=== PATIENT | female | born 1960 | race American Indian/Alaskan Native ===

== ENCOUNTER 2016-02-24 14:27 | Outpatient (CLI) | payer OTHER ==
--- NOTE | 2016-02-24 16:15 | Mammography Report ---
BILATERAL DIGITAL SCREENING MAMMOGRAM : 02/24/16 14:27:00 CLINICAL: Routine screening. COMPARISON:01/22/15 FINDINGS: The breasts are heterogeneously dense, which may obscure small masses. A left asymmetry on the MLO view requires additional imaging.No architectural distortion or suspicious calcifications.The right breast is negative. IMPRESSION: Left asymmetry requiring further workup. BI-RADS CATEGORY: 0 -- Additional Imaging Evaluation Required RECOMMENDATION: Recall for left mediolateral and spot compression MLO views and left breast ultrasound if needed. ACR BI-RADS MAMMOGRAPHIC CODES: 0 = Needs additional imaging evaluation; 1 = Negative; 2 = Benign; 3 = Probably benign; 4 = Suspicious; 5 = Malignant; 6 = Known biopsy-proven malignancy COMMENT: 1. Dense breast tissue, i.e., adenosis, fibrocystic changes, etc., may obscure an underlying neoplasm. 2. Approximately 10% of cancers are not detected with mammography. 3. A negative mammography report should not delay biopsy if a clinically suspicious mass is present. COMMENT: Patient follow-up letters are generated via our [employer] application.
== END 2016-02-24 14:28 | disposition home or self-care (01) ==
LOC: SPVWC 14:27
PROVIDERS: ATTEND Obstetrics & Gynecology
DX: Z12.31 Encounter for screening mammogram for malignant neoplasm of breast (principal)
CPT/HCPCS: 77067; G0202

== ENCOUNTER 2016-03-03 09:16 | Outpatient (CLI) | payer OTHER ==
--- NOTE | 2016-03-03 10:54 | Mammography Report ---
LEFT DIGITAL DIAGNOSTIC MAMMOGRAM : 03/03/16 09:16:00 CLINICAL: Recalled for asymmetry. COMPARISON:02/24/16 screening FINDINGS: ML, MLO and spot compression MLO views were performed. A less suspicious density persists on MLO and ML views but is unchanged on the spot MLO view. Ultrasound of the upper left breast was performed and demonstrated normal fatty and fibroglandular structures. No mass, cyst or shadowing to correlate with the mammographic density. IMPRESSION: A probably benign mammographic asymmetry identified only on one view of the mammogram with a negative ultrasound. BI-RADS CATEGORY: 3 - - Probably Benign RECOMMENDATION: Six month followup left mammogram and ultrasound if needed. ACR BI-RADS MAMMOGRAPHIC CODES: 0 = Needs additional imaging evaluation; 1 = Negative; 2 = Benign; 3 = Probably benign; 4 = Suspicious; 5 = Malignant; 6 = Known biopsy-proven malignancy COMMENT: 1. Dense breast tissue, i.e., adenosis, fibrocystic changes, etc., may obscure an underlying neoplasm. 2. Approximately 10% of cancers are not detected with mammography. 3. A negative mammography report should not delay biopsy if a clinically suspicious mass is present. COMMENT: Patient follow-up letters are generated via our [employer] application.
== END 2016-03-03 09:17 | disposition home or self-care (01) ==
LOC: SPVWC 09:16
PROVIDERS: ATTEND Obstetrics & Gynecology
DX: R92.8 Other abnormal and inconclusive findings on diagnostic imaging of breast (principal)
CPT/HCPCS: 76642; G0206

== ENCOUNTER 2016-09-01 11:06 | Outpatient (CLI) | payer OTHER ==
--- NOTE | 2016-09-01 13:23 | Mammography Report ---
LEFT DIGITAL DIAGNOSTIC MAMMOGRAM with CAD: 09/01/16 11:06:00 CLINICAL: Six month followup for asymmetry. COMPARISON:03/03/16, 02/24/16 and 01/22/15 FINDINGS: The breast is heterogeneously dense, which may obscure small masses. The previously described asymmetry is less prominent and demonstrates near complete effacement with spot compression. No mass, architectural distortion or suspicious calcifications. IMPRESSION: Negative mammogram. BI-RADS CATEGORY: 1 - - Negative RECOMMENDATION: Return to routine mammographic screening. ACR BI-RADS MAMMOGRAPHIC CODES: 0 = Needs additional imaging evaluation; 1 = Negative; 2 = Benign; 3 = Probably benign; 4 = Suspicious; 5 = Malignant; 6 = Known biopsy-proven malignancy COMMENT: 1. Dense breast tissue, i.e., adenosis, fibrocystic changes, etc., may obscure an underlying neoplasm. 2. Approximately 10% of cancers are not detected with mammography. 3. A negative mammography report should not delay biopsy if a clinically suspicious mass is present. COMMENT: Patient follow-up letters are generated by our [employer] application.
== END 2016-09-01 11:07 | disposition home or self-care (01) ==
LOC: SPVWC 11:06
PROVIDERS: ATTEND Obstetrics & Gynecology
DX: R92.8 Other abnormal and inconclusive findings on diagnostic imaging of breast (principal); I10 Essential (primary) hypertension; Z87.891 Personal history of nicotine dependence
CPT/HCPCS: G0206-LT

== ENCOUNTER 2017-06-29 12:04 | Outpatient (CLI) | payer OTHER ==
[2017-06-29 13:02] LABS: Blood Urea Nitrogen 14 mg/dL (7-17)
--- NOTE | 2017-06-29 16:02 | Cat Scan Report ---
FINAL REPORT EXAM: CT ABDOMEN PELVIS WO/W CON HISTORY: FEMALE PELVIC PAIN TECHNIQUE: Standard unenhanced followed by enhanced CT of the abdomen and pelvis. Coronal and sagittal reconstruction was also performed. Delayed imaging through the kidneys and bladder was also obtained. Contrast: Oral and intravenous contrast given PRIORS: None. FINDINGS: There a percutaneous drain in the right mid abdomen which terminates within the midline pelvis. There is a small amount of low-density free fluid in the dependent pelvis surrounding the end of the tubing. Within the abdomen, the liver, spleen, pancreas, gallbladder, adrenal glands, and kidneys are unremarkable. No evidence for retroperitoneal or pelvic lymphadenopathy is seen. The bowel loops have normal caliber. No soft tissue mass, loculated fluid collection, inflammatory change, or free air is seen within the abdomen or pelvis. The appendix is normal. Within the pelvis, the bladder is unremarkable. The uterus has been surgically removed. No evidence for mass or lymphadenopathy is seen in the pelvis. Images through the upper abdomen include the lung bases which are expanded and clear. Bony structures show bilateral facet joint degenerative changes at L4 through S1. Spinal cord stimulator leads are present within the spinal canal. Subchondral sclerosis and cyst formation is present on the ilial side of both SI joints, likely related to osteoarthritis. IMPRESSION: 1. no acute intra-abdominal process noted. 2. Small amount of low-density free fluid in the dependent pelvis surrounding terminal end of the percutaneous drain.
== END 2017-06-29 12:05 | disposition home or self-care (01) ==
LOC: CT 12:04
PROVIDERS: ATTEND Obstetrics & Gynecology
DX: R10.2 Pelvic and perineal pain (principal); M47.817 Spondylosis without myelopathy or radiculopathy, lumbosacral region; Z90.710 Acquired absence of both cervix and uterus
CPT/HCPCS: 36415; 74178; 82565; 84520; Q9967

== ENCOUNTER 2017-11-02 10:29 | Outpatient (CLI) | payer OTHER ==
--- NOTE | 2017-11-02 11:43 | Ultrasound Report ---
BILATERAL DIGITAL DIAGNOSTIC MAMMOGRAM with CAD and LEFT BREAST ULTRASOUND: 11/02/17 CLINICAL: Left axillary pain. COMPARISON:02/24/16 and left mammograms from 03/03/16 and 09/01/16 FINDINGS: The breasts are heterogeneously dense, which may obscure small masses.A left outer biopsy clip.No mass, architectural distortion or suspicious calcifications. Several bilateral axillary lymph nodes with benign morphology. Ultrasound of the left breast was performed in the left axillary tail and axilla. Small lymph nodes with benign morphology measure 1.3 x 0.4 x 0.5 cm and 0.7 x 0.4 x 0.6 cm. No mass or suspicious lymph node. No fluid collection or cyst. IMPRESSION: Negative mammogram and negativeleft axillary ultrasound. No explanation for left axillary pain. BI-RADS CATEGORY: 1 -- Negative RECOMMENDATION: Clinical followup and routine mammographic screening in one year. COMMENT: Patient follow-up letters are generated by our [employer] application.
== END 2017-11-02 10:30 | disposition home or self-care (01) ==
LOC: SPVWC 10:29
PROVIDERS: ATTEND Obstetrics & Gynecology
DX: R92.8 Other abnormal and inconclusive findings on diagnostic imaging of breast (principal); I10 Essential (primary) hypertension; Z87.891 Personal history of nicotine dependence
CPT/HCPCS: 77066

== ENCOUNTER 2018-10-23 09:40 | Outpatient (CLI) | payer OTHER ==
--- NOTE | 2018-10-23 15:57 | Mammography Report ---
BILATERAL DIGITAL SCREENING MAMMOGRAM WITH CAD INDICATION: Routine screening mammography. TECHNIQUE: Digital bilateral 2D mammography was obtained in the craniocaudal and mediolateral obliq ue projections. This examination was interpreted with the benefit of Computer-Aided Detection analysi s. COMPARISON: 11/02/2017, 02/24/2016 and 01/22/2015 FINDINGS: Breast Density: The breasts are heterogeneously dense, which may obscure small masses. No mass, architectural distortion or suspicious calcifications. Left outer biopsy clip. IMPRESSION:No mammographic evidence of malignancy. BI-RADS Category 2: Benign. No mammographic evidence of malignancy. Recommend routine screening ma mmography in one year. A "normal" or negative report should not discourage follow up or biopsy of a clinically significant f inding. A written summary of these findings will be mailed to the patient. The patient will be entered into a mammography reporting system which will generate a reminder letter for the patient's next appointmen t at the appropriate interval. The [employer] recommends yearly mammograms starting at age 40 and continuing as l melissa as a woman is in good health. Breast MRI is recommended for women with an approximate 20-25% or greater lifetime risk of breast cancer, including women with a strong family history of breast or ova ishmael cancer or who have been treated for Hodgkin's disease. Signer Name: Fercho Gaines MD Signed: 10/23/2018 3:52 PM Workstation Name: [id number]
== END 2018-10-23 09:41 | disposition home or self-care (01) ==
LOC: SPVWC 09:40
PROVIDERS: ATTEND Obstetrics & Gynecology
DX: Z12.31 Encounter for screening mammogram for malignant neoplasm of breast (principal); I10 Essential (primary) hypertension
CPT/HCPCS: 77067

== ENCOUNTER 2020-07-28 09:24 | Outpatient (CLI) | payer OTHER | END 2020-07-28 09:25 | disposition home or self-care (01) | LOC: XRAY 09:24 | PROVIDERS: ATTEND Internal Medicine | DX: M16.12 Unilateral primary osteoarthritis, left hip (principal); M47.816 Spondylosis without myelopathy or radiculopathy, lumbar region; M46.1 Sacroiliitis, not elsewhere classified; I10 Essential (primary) hypertension; E78.00 Pure hypercholesterolemia, unspecified | CPT/HCPCS: 72100 ==

== ENCOUNTER 2020-10-28 10:11 | Outpatient (CLI) | payer OTHER ==
--- NOTE | 2020-10-29 09:45 | Mammography Report ---
DIGITAL SCREENING MAMMOGRAM WITH CAD, 10/28/2020 CLINICAL INFORMATION / INDICATION: Routine screening mammography. SCREENING MAMMO Z12.31 TECHNIQUE: Digital bilateral 2D mammography was obtained in the craniocaudal and mediolateral obliqu e projections. This examination was interpreted with the benefit of Computer-Aided Detection analysis . COMPARISON: 10/28/2019, 10/23/2018 FINDINGS: Breast Density: The breasts are heterogeneously dense, which may obscure small masses. No dominant mass, suspicious calcifications, or architectural distortion in either breast. Biopsy marking clip is noted on the left. Postsurgical scar is noted on the left. IMPRESSION: No mammographic evidence of malignancy. Follow up recommendation: Routine yearly BI-RADS Category 2: Benign. A "normal" or negative report should not discourage follow up or biopsy of a clinically significant f inding. A written summary of these findings will be mailed to the patient. The patient will be entered into a mammography reporting system which will generate a reminder letter for the patient's next appointmen t at the appropriate interval. The [employer] recommends yearly mammograms starting at age 40 and continuing as l melissa as a woman is in good health. Breast MRI is recommended for women with an approximate 20-25% or greater lifetime risk of breast cancer, including women with a strong family history of breast or ova ishmael cancer or who have been treated for Hodgkin's disease. Signer Name: Jaleel Torres MD Signed: 10/29/2020 9:41 AM Workstation Name: [facility]
== END 2020-10-28 10:12 | disposition home or self-care (01) ==
LOC: SPVWC 10:11
PROVIDERS: ATTEND Obstetrics & Gynecology
DX: Z12.31 Encounter for screening mammogram for malignant neoplasm of breast (principal)
CPT/HCPCS: 77067